=== PATIENT | male | born 1970 | race African-American/Black ===

== ENCOUNTER 2017-04-23 06:26 | Emergency (ER) | payer SELFPAY ==
[~2017-04-23] VITALS: Ht 185.4 cm; Wt 60.0 kg
[~2017-04-23 06:26] MED LIST: LORTA5 PO; WARF3 PO
[2017-04-23 06:32] VITALS: BP 129/81; PULSE 89; RESP 18; TEMP 98.9; O2SAT 100
[2017-04-23] MEDS ORDERED: SODIUM CHLOR 0.9% 1000 ML INJ 1,000 ML IV ONE ×4 (09:18→11:45)
[2017-04-23] MEDS ORDERED: ONDANSETRON HCL 4 MG/2 ML VIAL IV PUSH ONE (09:30)
[2017-04-23 09:38] VITALS: BP 136/78; PULSE 76; RESP 18; O2SAT 100
--- NOTE | 2017-04-23 10:07 | PD ---
HPI . Vomiting and diarrhea Chief Complaint: GI Complaint Time Seen by Provider: 09:16 Travel History International Travel<30 days: No Contact w/Intl Traveler<30days: No Traveled to known affect area: No History of Present Illness HPI Patient presents with chief complaint of vomiting and diarrhea. Onset was a little over 24 hours ago. He states that he had been out drinking the night before celebrating his birthday. He states that he also had a little bit of seafood and attributes his vomiting and diarrhea to the seafood. He continues to have very frequent episodes of both vomiting and diarrhea. He has attempted to treat himself at home with Pedialyte. He states that the Pedialyte only stays down a couple of minutes and then he vomits again. He reports subjective fever and abdominal cramping. He rates his abdominal cramping at 8/10. There are no known exacerbating factors. Symptoms are unrelieved by Pedialyte. Symptoms have been severe. He states that he has subsequently developed a headache and is feeling weak and dizzy. 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) Heart Rhythm Problems: No Cancer: No Cardiovascular Problems: No High Cholesterol: No Chemotherapy: No Congestive Heart Failure: No COPD: No Cerebrovascular Accident: No Diabetes: No Diminished Hearing: No Gastrointestinal Disorders: Yes GERD: No Genitourinary: No Hepatitis: No Hiatal Hernia: No Hypertension: No Kidney Stones: No Musculoskeletal: Yes (scoliosis) Neurologic: No Psychiatric: No Reproductive: No Respiratory: No Myocardial Infarction: No Pancreatitis: Yes Radiation Therapy: No Renal Failure: No Seizures: No Sleep Apnea: No Thyroid Disease: No Ulcer: No Tetanus Vaccination: Unknown Influenza Vaccination: No Past Surgical History Surgical History: No Previous Surgery AICD: No Genitourinary Surgery: No Pacemaker: No Social History Alcohol Use: Yes (occasionally) Tobacco Use: Yes Substance Use: No Allergies-Medications (Allergen,Severity, Reaction): Coded Allergies: No Known Allergies (Verified Adverse Reaction, Unknown, 04/23/17) Reported Meds & Prescriptions Reported Meds & Active Scripts Active Zofran (Ondansetron HCl) 4 Mg Tab 4 Mg PO Q6HR PRN Coumadin (Warfarin Sod) 3 Mg Tab 2 Tab PO DAILY@1600 Hold Coumadin until repeat INR checked in 2 days and follow up with PCP Dr. Bhat for further recommendations Hydrocodone/Acetaminophen 5 mg/325 mg 1 Tab Tab 1 Tab PO Q6H PRN Review of Systems Except as stated in HPI: all other systems reviewed are Neg General / Constitutional: Positive: Fever, Chills Gastrointestinal: Positive: Nausea, Vomiting, Diarrhea, Abdominal Pain Physical Exam Narrative GENERAL: Awake and alert. SKIN: warm/dry. Normal color and turgor. HEAD: Normocephalic. Atraumatic. EYES: Pupils equal and round. No scleral icterus. No injection or drainage. ENT: No nasal bleeding or discharge. Mucous membranes pink and moist. NECK: Trachea midline. Full range of motion without pain.. CARDIOVASCULAR: Regular rate and rhythm. He is not tachycardic. RESPIRATORY: No accessory muscle use. Clear to auscultation. Breath sounds equal bilaterally. GASTROINTESTINAL: Abdomen soft. Nontender. Bowel sounds present. Nondistended. MUSCULOSKELETAL: No obvious deformities. NEUROLOGICAL: Awake and alert. No obvious cranial nerve deficits. Motor grossly within normal limits. Normal speech. PSYCHIATRIC: Appropriate mood and affect; insight and judgment normal. Data Data Last Documented VS Vital Signs Date Time Temp Pulse Resp B/P (MAP) Pulse Ox O2 Delivery O2 Flow Rate FiO2 04/23/17 09:38 76 18 136/78 (97) 100 Room Air 04/23/17 06:32 98.9 Orders Orders Ondansetron Inj (Zofran Inj) (04/23/17 09:30) Sodium Chlor 0.9% 1000 Ml Inj (Ns 1000 M (04/23/17 09:18) Sodium Chlor 0.9% 1000 Ml Inj (Ns 1000 M (04/23/17 09:18) Sodium Chlor 0.9% 1000 Ml Inj (Ns 1000 M (04/23/17 10:45) Sodium Chlor 0.9% 1000 Ml Inj (Ns 1000 M (04/23/17 11:45) Ed Discharge Order (04/23/17 12:29) MDM Medical Decision Making Medical Screen Exam Complete: Yes Emergency Medical Condition: Yes Differential Diagnosis Differential diagnosis includes but is not limited to viral gastritis, food poisoning, pancreatitis, pneumonia, hepatitis, acute coronary syndrome, Narrative Course This patient presents with the acute onset of nausea, vomiting and diarrhea. This started over 24 hours ago. It started after a night of drinking as well as after eating some seafood. The patient will be treated initially with 2 L of fluid and IV Zofran. If the Zofran is ineffective in controlling his vomiting, I will then give him Compazine and Benadryl. 10:10 AM Patient reports that he is feeling much better. He does not yet have the urge to urinate. My plan is to hydrate him until he urinates. 11:40 AM The patient has urinated but it was a very small amount. I will give him one more back of fluid prior to discharge. Diagnosis Primary Impression: Gastroenteritis Additional Impression: Dehydration Patient Instructions: Gastroenteritis (DC), General Instructions Med/Other Pt SpecificInfo: Prescription(s) given Scripts Ondansetron (Zofran) 4 Mg Tab 4 MG PO Q6HR Y for NAUSEA OR VOMITING, #6 TAB 0 Refills Prov: Kerri Zuniga MD 04/23/17 Disposition: 01 DISCHARGE HOME Condition: Stable Kerri Zuniga MD Apr 23, 2017 10:07
[2017-04-23] MEDS ORDERED: ZOFR4TAB PO (11:39)
== END 2017-04-23 12:48 | disposition home or self-care (01) ==
LOC: NEPD 06:26
DX: K52.9 Noninfective gastroenteritis and colitis, unspecified (principal); E86.0 Dehydration; M41.9 Scoliosis, unspecified; Z87.19 Personal history of other diseases of the digestive system; Z72.0 Tobacco use; Z79.01 Long term (current) use of anticoagulants; Z79.899 Other long term (current) drug therapy
CPT/HCPCS: 96374; 99284; J2405; J7030